=== PATIENT | female | born 1970 | race Two or more races ===

== ENCOUNTER 2017-08-05 21:02 | Emergency (ER) | payer SELFPAY ==
[~2017-08-05] VITALS: Ht 149.9 cm; Wt 113.4 kg
--- NOTE | 2017-08-05 21:26 | Emergency Room Report ---
History of Present Illness General Chief Complaint: Lower Extremity Injury Source: Patient Present Illness HPI Is a 47-year-old female with no past medical history. She has a BMI of 50.5. Since with left knee pain for the last 2 weeks. No trauma. Worse with walking. No relief with leave. Pain is 8/10. No radiation. No shortness of breath. Not on control pill. Allergies: Coded Allergies: No Known Allergies (Unverified , 08/05/17) Patient History Past Medical History: see triage record, old chart reviewed Past Surgical History: other Pertinent Family History: none Social History: Denies: smoking Last Menstrual Period: 07/16/17 Immunizations: other Reviewed Nursing Documentation: PMH: Agreed, PSxH: Agreed Nursing Documentation-PM Past Medical History: No Stated History Review of Systems Eye: Denies: eye pain, blurred vision ENT: Denies: ear pain, nose congestion, throat swelling Respiratory: Denies: cough, shortness of breath Cardiovascular: Denies: chest pain, palpitations Gastrointestinal: Denies: abdominal pain, diarrhea, nausea, vomiting Musculoskeletal: Reports: joint pain, Denies: back pain Skin: Denies: rash Neurological: Denies: headache, numbness Endocrine: Denies: increased thirst, increased urine Hematologic/Lymphatic: Denies: easy bruising All Other Systems: negative except mentioned in HPI Physical Exam Vital Signs Date Time Temp Pulse Resp B/P (MAP) Pulse Ox O2 Delivery O2 Flow Rate FiO2 08/05/17 21:13 98.1 70 20 98 Room Air vitals normal Sp02 EP Interpretation: reviewed, normal General Appearance: well appearing, no apparent distress, alert Head: normocephalic, atraumatic Eyes: bilateral eye PERRL, bilateral eye EOMI ENT: hearing grossly normal, normal pharynx Neck: full range of motion, supple, no meningismus Respiratory: chest non-tender, lungs clear, normal breath sounds Cardiovascular #1: regular rate, rhythm, no murmur Gastrointestinal: normal bowel sounds, non tender, no mass, no organomegaly, no bruit, non-distended Musculoskeletal: back normal, gait/station normal, normal range of motion, other - No deformity to left knee. Diffuse tenderness. Psychiatric: mood/affect normal Skin: warm/dry Medical Decision Making Diagnostic Impression: Primary Impression: Osteoarthritis of left knee Qualified Codes: M17.12 - Unilateral primary osteoarthritis, left knee Additional Impression: Morbid obesity with BMI of 50.0-59.9, adult ER Course Patient presents with left knee pain secondary to osteoarthritis. No evidence of DVT or trauma. We'll discharge home. Advised patient to lose weight and follow up with primary care DrLily for physical therapy. She may benefit from cortisone injection. Knee replacement is the last option. Other X-Ray Diagnostic Results Other X-Ray Diagnostic Results : X-Ray ordered: X-rays left knee # of Views/Limited Vs Complete: 3 View Indication: Pain EP Interpretation: Yes Interpretation: no dislocation, no soft tissue swelling, no fractures, other - Degenerative changes Impression: No acute disease Electronically Signed by: Higinio Poole MD Last Vital Signs Date Time Temp Pulse Resp B/P (MAP) Pulse Ox O2 Delivery O2 Flow Rate FiO2 08/05/17 21:13 98.1 70 20 98 Room Air Status: improved Disposition: HOME, SELF-CARE Condition: Stable Scripts Tramadol Hcl* (ULTRAM*) 50 Mg Tablet 50 MG ORAL TID Y for For Pain, #20 TAB 0 Refills Prov: HIGINIO POOLE M.D. 08/05/17 Additional Instructions: Followup with your DrLily in 7 days. Return if symptom worsen. HIGINIO POOLE M.D. Aug 05, 2017 21:26
[2017-08-05] MEDS ORDERED: Norco 5mg/325mg tab ORAL ONE (21:30)
[2017-08-05] MEDS ORDERED: TRAMADOL HCL50 MG ORAL (21:48)
[2017-08-05 21:55] VITALS: BP 138/69
--- NOTE | 2017-08-06 11:46 | Diagnostic Imaging Report ---
Indication: Pain 3 views of the left knee were obtained. Findings: No acute fracture, malalignment, or joint effusion are identified. Joint space is relatively well-maintained. Impression: Negative for acute injury
== END 2017-08-05 21:55 | disposition home or self-care (01) ==
LOC: EMR 21:30
DX: M17.12 Unilateral primary osteoarthritis, left knee (principal); E66.01 Morbid (severe) obesity due to excess calories; Z68.43 Body mass index [BMI] 50.0-59.9, adult
CPT/HCPCS: 99283

== ENCOUNTER 2017-11-28 12:28 | Emergency (ER) | payer SELFPAY ==
[~2017-11-28] VITALS: Ht 162.6 cm; Wt 136.1 kg
[~2017-11-28 12:28] MED LIST: TRAMADOL HCL50 MG ORAL
[2017-11-28] MEDS ORDERED: Acetaminophen 500mg (ES) tab ORAL ONE (12:45)
[2017-11-28] MEDS ORDERED: Methocarbamol 500mg tab ORAL ONE (12:45)
--- NOTE | 2017-11-28 12:47 | Emergency Room Report ---
History of Present Illness General Chief Complaint: Lower Back Pain or Injury Present Illness HPI 47-year-old female patient presents ER complaining of low back pain since yesterday s/p fall. Reports she fell while cleaning her house onto her right side of her lower back. Denies hitting her head or loss of consciousness. Denies nausea, vomiting, dizziness. Reports pain worsening since yesterday. Denies bowel or bladder problems. Denies history of low back pain. Denies fever, chest pain, SOB. Allergies: Coded Allergies: No Known Allergies (Unverified , 08/05/17) Patient History Past Medical History: see triage record Reviewed Nursing Documentation: PMH: Agreed; PSxH: Agreed Review of Systems All Other Systems: negative except mentioned in HPI Physical Exam Vital Signs Date Time Temp Pulse Resp B/P (MAP) Pulse Ox O2 Delivery O2 Flow Rate FiO2 11/28/17 12:33 98.1 67 20 102/58 99 Room Air 98.1 Sp02 EP Interpretation: reviewed, normal General Appearance: well appearing, no apparent distress, alert, GCS 15, non- toxic Head: normocephalic, atraumatic Eyes: bilateral eye normal inspection, bilateral eye PERRL ENT: hearing grossly normal, normal pharynx, no angioedema, normal voice, uvula midline, moist mucus membranes Neck: full range of motion Respiratory: lungs clear, normal breath sounds, no rhonchi, no respiratory distress, no accessory muscle use, no wheezing, speaking full sentences Cardiovascular #1: regular rate, rhythm, no edema Musculoskeletal: back normal, digits/nails normal, gait/station normal, normal range of motion, non-tender - spinal process, no calf tenderness, pelvis stable , other - no ecchymosis, no erythema, no edema, no bony stepoff, tender - right lower lumbosacral tenderness Neurologic: alert, oriented x3, responsive, motor strength/tone normal, SLR negative, sensory intact Psychiatric: mood/affect normal Skin: no rash Medical Decision Making PA Attestation Dr. Horner is my supervising Physician whom patient management has been discussed with. Diagnostic Impression: Primary Impression: Lumbosacral pain ER Course Pt presents to ED c/o back pain. DDX considered but are not limited to sprain, strain, cauda equina, UTI. Low suspicion for cauda equina, no bowel or bladder incontinence or retention. CURES report shows no medication pain medication rx since 2017. VITAL SIGNS are WNL, patient is afebrile Ordered pain medication, imaging, labs. ER COURSE: Pain medication provided. UA shows negative nitrites, 0-2 WBC, no urinary symptoms, low suspicion for UTI , does not require tx with abx at this time. Urine negative Results discussed with patient Xray of lumbar spine ordered. Consult with radiologist. No acute trauma. Mild degenerative changes of spine with Grade 1 anterolisthesis of L4 on L5. Questionable pars defect at this level of uncertain chronicity. Correlate clinically. Further evaluation with CT or MRI recommended as clinically indicated. Followup outpatient for CT/MRI. Discuss with primary care provider. Results discussed with patient. Patient reports understanding, will followup with primary care provider for imaging. Patient reports feeling better following administration of medication. Ambulating without difficulty. DISCHARGE: -Rx provided for Tylenol -Rx provided for Lidocaine patch -Rx provided for Robaxin. SE drowsiness. Do not take prior to drinking, driving or operating heavy machinery. At this time pt. is stable for d/c to home. At this time patient is resting comfortably, in no acute distress, nontoxic appearing, smiling and talking without difficulty. Will provide printed patient care instructions, and any necessary prescriptions. Patient instructed to follow with primary care provider for further treatment and referral as needed. Care plan and follow up instructions have been discussed with the patient prior to discharge. Patient reports understanding and agreement to treatment plan. Patient questions asked and answered. ER precautions given, patient instructed to return to ER immediately for any new or worsening of symptoms. Labs Test 11/28/17 13:00 Urine Color Pale yellow Urine Appearance Clear Urine pH 6.5 (4.5-8.0) Urine Specific Huggins 1.010 (1.005-1.035) Urine Protein Negative (NEGATIVE) Urine Glucose (UA) Negative (NEGATIVE) Urine Ketones Negative (NEGATIVE) Urine Occult Blood Negative (NEGATIVE) Urine Nitrite Negative (NEGATIVE) Urine Bilirubin Negative (NEGATIVE) Urine Urobilinogen Normal MG/DL (0.0-1.0) Urine Leukocyte Esterase 1+ (NEGATIVE) Urine RBC 0-2 /HPF (0 - 2) Urine WBC 0-2 /HPF (0 - 2) Urine Squamous Epithelial Cells Few /LPF (NONE/OCC) Urine Bacteria Occasional /HPF (NONE) Urine HCG, Qualitative Negative (NEGATIVE) Other X-Ray Diagnostic Results Other X-Ray Diagnostic Results : X-Ray ordered: lumbar spine # of Views/Limited Vs Complete: 3 View Indication: Pain EP Interpretation: Yes PA Xray: Interpretation reviewed, by supervising MD, and agrees with findings. Interpretation: no dislocation, no soft tissue swelling, no fractures, other - mild degenerative changes of spine wtih Grade 1 anterolisthesis of L4 on L5. Questionable pars defect at this level of uncertain chronicity. Correlate clinically. Further evaluation with CT or MRI recommended as clinically indicated. Impression: No acute disease PA Scribe Text Mina Villareal PA-C Last Vital Signs Date Time Temp Pulse Resp B/P (MAP) Pulse Ox O2 Delivery O2 Flow Rate FiO2 11/28/17 12:33 98.1 67 20 102/58 99 Room Air 98.1 Disposition: HOME, SELF-CARE Condition: Stable Scripts Lidocaine (Lidocaine) 1 Each Adh..patch 700 MG TP DAILY for 7 Days, #7 PATCH Prov: Flip Villareal 11/28/17 Methocarbamol* (ROBAXIN*) 500 Mg Tablet 500 MG PO TID, #21 TAB 0 Refills Prov: Flip Villareal 11/28/17 Acetaminophen* (TYLENOL EXTRA STRENGTH*) 500 Mg Tablet 500 MG ORAL Q8H PRN for Prn Headache/Temp > 101, #30 TAB 0 Refills Prov: Flip Villareal 11/28/17 Patient Instructions: Low Back Sprain With Rehab-Sports[facility], Lumbosacral Strain , Back Pain, Adult Additional Instructions: Patient instructed to follow up with primary care provider and discuss further referral and treatment. Need outpatient MRI. Some degenerative changes, no acute fracture. Patient instructed on rest, ice and heat. Take medications as directed. Patient questions asked and answered. ER precautions given, patient instructed to return to ER immediately for any new or worsening of symptoms. Flip Villareal Nov 28, 2017 12:47
[2017-11-28] MEDS ORDERED: TYLENOL EXTRA500 MG ORAL (13:08)
[2017-11-28] MEDS ORDERED: ROBAXIN500 MG PO (13:08)
[2017-11-28] MEDS ORDERED: LIDOCAINE700 M1 TP (13:08)
[2017-11-28 13:23] LABS: APPEARANCE,URINE CLEAR; BILIRUBIN, URINE NEGATIVE (NEGATIVE); COLOR,URINE PALE YELLOW; GLUCOSE, URINE (UA) NEGATIVE (NEGATIVE); KETONES,URINE NEGATIVE (NEGATIVE); LEUKOCYTE ESTERASE ,URINE 1+ (NEGATIVE); NITRITE,URINE NEGATIVE (NEGATIVE); PH,URINE 6.5 (4.5-8.0); PROTEIN,URINE NEGATIVE (NEGATIVE); UROBILINOGEN,URINE NORMAL MG/DL (0.0-1.0)
[2017-11-28 13:50] VITALS: BP 106/53
--- NOTE | 2017-11-28 13:54 | Diagnostic Imaging Report ---
Indication: Pain Technique: XRAY L [employer] Comparison: None Findings: There are 5 nonrib-bearing lumbar-type vertebral bodies, assuming 12 paired ribs. Mild degenerative changes of the spine. There is grade 1 anterolisthesis of L4 on L5. Questionable pars defect at L4, age indeterminate. Vertebral body heights are maintained; there is no acute compression fracture. Bowel gas pattern unremarkable. Impression: Mild degenerative change of the spine with Grade 1 anterolisthesis of L4 on L5. Questionable pars defect at this level of uncertain chronicity. Correlate clinically. Further evaluation with CT or MRI recommended as clinically indicated.
[2017-11-28 14:20] VITALS: BP 106/53
== END 2017-11-28 13:50 | disposition home or self-care (01) ==
LOC: EMR 13:02
DX: M54.5 Low back pain (principal)
CPT/HCPCS: 72020; 81003; 81025; 99284

== ENCOUNTER 2018-09-19 14:16 | Emergency (ER) | payer SELFPAY ==
[~2018-09-19] VITALS: Ht 149.9 cm; Wt 113.4 kg
[~2018-09-19 14:16] MED LIST changes: +LIDOCAINE700 M1 TP; +ROBAXIN500 MG PO; +TYLENOL EXTRA500 MG ORAL
[2018-09-19] MEDS ORDERED: NKM (14:26)
[2018-09-19 14:28] VITALS: BP 117/69
--- NOTE | 2018-09-19 14:28 | NUR ---
ED Nurse Note: A/OX4. AMBULATED IN TO ER DUE TO RIGHT EARACHE X 5 DAYS. DENIES ANY DISCHARGE NOR DIZZINESS.
--- NOTE | 2018-09-19 14:42 | Emergency Room Report ---
History of Present Illness General Chief Complaint: Earache Source: Medical Record Present Illness HPI 48-year-old female presents to the emergency department complaining of 7 out of 10 in severity localized in the right ear pain 5 days. Patient denies discharge she denies ears, chills. Patient reports that she has been trying some homeopathic ear drops at home with no relief. Patient does report that she used Q-tips several times and states that she did have a little bit of blood on one Q-tip on the first day. Patient denies insertion of any other medications or homeopathic remedies. Patient reports and tenderness to the onset of her ear. Patient denies recent travel or submersion in water she also denies history of diabetes. Denies tinnitus or loss of hearing.No aggravating or relieving factors. Denies dizziness or vertigo. Allergies: Coded Allergies: No Known Allergies (Unverified , 08/05/17) Patient History Past Medical History: see triage record Past Surgical History: none Pertinent Family History: none Last Menstrual Period: n/a Now: No : 3 Para: 3 Reviewed Nursing Documentation: PMH: Agreed; PSxH: Agreed Review of Systems All Other Systems: negative except mentioned in HPI Physical Exam Vital Signs Date Time Temp Pulse Resp B/P (MAP) Pulse Ox O2 Delivery O2 Flow Rate FiO2 09/19/18 14:23 98.4 66 18 117/69 96 Room Air Sp02 EP Interpretation: reviewed, normal General Appearance: no apparent distress, alert, GCS 15, non-toxic Head: normocephalic, atraumatic Eyes: bilateral eye normal inspection, bilateral eye PERRL ENT: hearing grossly normal, normal voice, moist mucus membranes, nasal congestion, other - Right Canal is erythematous and macerated in appearance with some blood noted along the posterior wall of the canal. No TM involvement, no evidence of mastoiditis or preauricular LAD on PE Neck: full range of motion, no meningismus, no bony tend Respiratory: lungs clear, normal breath sounds, speaking full sentences Cardiovascular #1: regular rate, rhythm Musculoskeletal: back normal, gait/station normal, normal range of motion, non- tender Neurologic: alert, oriented x3, responsive, motor strength/tone normal, sensory intact, normal gait, speech normal, grossly normal Psychiatric: judgement/insight normal Skin: normal color, no rash, warm/dry, well hydrated Lymphatic: no adenopathy Medical Decision Making PA Attestation Dr. Vincent is my supervising Physician whom patient management has been discussed with. Diagnostic Impression: Primary Impression: Otitis externa Qualified Codes: H60.501 - Unspecified acute noninfective otitis externa, right ear ER Course 48-year-old female presents to the emergency department complaining of 7 out of 10 in severity localized in the right ear pain 5 days. Patient denies discharge she denies ears, chills. Patient reports that she has been trying some homeopathic ear drops at home with no relief. Patient does report that she used Q-tips several times and states that she did have a little bit of blood on one Q-tip on the first day. Patient denies insertion of any other medications or homeopathic remedies. Patient reports and tenderness to the onset of her ear. Patient denies recent travel or submersion in water she also denies history of diabetes. Denies tinnitus or loss of hearing.No aggravating or relieving factors. Denies dizziness or vertigo. Ddx considered but are not limited to OM, OE, mastoiditis, TM perforation, FB Vital signs: are WNL, pt. is afebrile H&PE are most consistent with otitis externa ORDERS: none required at this time, the diagnosis is clinical -OTOSCOPY: Right Canal is erythematous and macerated in appearance with some blood noted along the posterior wall of the canal. No TM involvement, no evidence of mastoiditis or preauricular LAD on PE ED INTERVENTIONS: None required at this time. DISCHARGE: At this time pt. is stable for d/c to home. With Otic ABX. Will provide printed patient care instructions, and any necessary prescriptions. Care plan and follow up instructions have been discussed with the patient prior to discharge. Last Vital Signs Date Time Temp Pulse Resp B/P (MAP) Pulse Ox O2 Delivery O2 Flow Rate FiO2 09/19/18 14:28 98.4 87 18 117/69 96 Room Air Disposition: HOME, SELF-CARE Condition: Stable Departure Forms: Return to Work Return to Work Date: Sep 15, 2018 Work Restrictions: None Return to Full Activity: Sep 15, 2018 Patient Instructions: Otitis Externa, [id number] Additional Instructions: Take medications as directed. Follow up with a Primary Care Provider in 3-5 days, even if your symptoms have resolved. --Please review list of primary care clinics, if you do not already have a primary care provider Return sooner to ED if new symptoms occur, or current symptoms become worse. - Please note that this Emergency Department Report was dictated using [employer] technology software, occasionally this can lead to erroneous entry secondary to interpretation by the dictation equipment. Carissa Rodrigues Sep 19, 2018 14:42
[2018-09-19] MEDS ORDERED: TYLENOL EXTRA500 MG ORAL (14:44)
[2018-09-19] MEDS ORDERED: CIPRO HC OTIC S10 M1 OT (14:44)
[2018-09-19 14:54] VITALS: BP 117/69
--- NOTE | 2018-09-19 14:55 | NUR ---
ED Nurse Note: Pt cleared DC by Dr. Vincent. Pt is A/Ox4, VSS, DC instruction and prescriptions given, pt verbalized understanding. ID wristband removed. All belongings given to pt. Pt ambulated out of ER with steady gait.
== END 2018-09-19 14:56 | disposition home or self-care (01) ==
LOC: EMR 14:45
DX: H60.91 Unspecified otitis externa, right ear (principal)
CPT/HCPCS: 99282